=== PATIENT | male | born 1965 | race Caucasian/White ===

== ENCOUNTER 2016-12-07 07:15 | Day surgery (SDC) | payer OTHER, BC ==
[~2016-12-07 07:15] MED LIST: Lactated Ringers 1,000 ML IV SCH; Lidocaine 1%/Sod Bicarbonate in NS 8.4% 1 ML Syringe IV PRN; Lidocaine 1%/Sod Bicarbonate in NS 8.4% 1 ML Syringe PRN; Sodium Chloride 0.9% 10 ML Syringe FLUSH PRN
[2016-12-07] MEDS: Lactated Ringers 1,000 ML IV SCH ×2 (07:45→13:21)
[2016-12-07] MEDS ORDERED: fentaNYL 250 MCG/5 ML SDV ONE (07:46)
[2016-12-07] MEDS ORDERED: Midazolam 1 MG/ML 2 ML SDV ONE (07:46)
[2016-12-07] MEDS ORDERED: Propofol 200 MG/20 ML SDV ONE (07:46)
[2016-12-07] MEDS ORDERED: Lidocaine 1% 4 ML ONE (07:49)
[2016-12-07] MEDS ORDERED: Bupivacaine 0.5%/EPINEPHrine 1:200,000 50 ML MDV ONE (07:58)
[2016-12-07] MEDS ORDERED: Lidocaine 1% with EPINEPHrine 1:100,000 20 ML MDV ONE (07:58)
--- NOTE | 2016-12-07 08:02 | PCM.PREANE ---
Preanesthetic Assessment - Physical Assessment O2 Sat by Pulse Oximetry: 96 Respiratory Rate: 16 Vital Signs: Last Vital Signs Temp 37.2 C 12/07/16 07:25 Pulse 77 12/07/16 07:25 Resp 16 12/07/16 07:25 BP 120/72 12/07/16 07:25 Pulse Ox 96 12/07/16 07:25 Height: 1.85 m Weight: 113.398 kg - Allergies Allergies/Adverse Reactions: Allergies Allergy/AdvReac Type Severity Reaction Status Date / Time No Known Allergies Allergy Verified 12/06/16 14:10 PreAnesthesia Questionnaire - Past Health History Medical/Surgical History: Denies Medical/Surgical History Cardiovascular History: Reports: None Respiratory History: Reports: None Gastrointestinal History: Reports: None Genitourinary History: Reports: None ORE CHARGER History: Reports: None Neurological History: Reports: None Psychiatric History: Reports: None Endocrine/Metabolic History: Reports: None Hematologic History: Reports: None Immunologic History: Reports: None Oncologic (Cancer) History: Reports: None Dermatologic History: Reports: None - Past Surgical History Head Surgeries/Procedures: Reports: None HEENT Surgical History: Reports: Tonsillectomy Cardiovascular Surgical History: Reports: None Respiratory Surgical History: Reports: None GI Surgical History: Reports: None Female Surgical History: Reports: None Male Surgical History: Reports: None Neurological Surgical History: Reports: None Musculoskeletal Surgical History: Reports: ORIF Other Musculoskeletal Surgeries/Procedures:: L hand ORIF, ankle surgery x 3 Oncologic Surgical History: Reports: None Dermatological Surgical History: Reports: None - SUBSTANCE USE Smoking Status *Q: Current Every Day Smoker Tobacco Use Within Last Twelve Months: Cigarettes Days Per Week of Alcohol Use: 7 Number of Drinks Per Day: 3 Total Drinks Per Week: 21 Recreational Drug Use History: No - HOME MEDS Home Medications: Home Meds . [No Known Home Meds] 04/27/16 [History] - CURRENT (IN HOUSE) MEDS Current Meds: Current Medications Lactated Ringer's (Ringers, Lactated) 1,000 mls @ 125 mls/hr IV ASDIRECTED ABHI Stop: 12/07/16 23:00 Lidocaine/Sodium Bicarbonate (Buffered Lidocaine 1% In Ns 8.4%) 0.25 ml .XX ONETIME PRN PRN Reason: Prior to IV Start Stop: 12/07/16 18:00 Sodium Chloride (Saline Flush) 10 ml FLUSH ASDIRECTED PRN PRN Reason: Keep Vein Open Stop: 12/07/16 18:00 Discontinued Medications Fentanyl (Sublimaze) Confirm Administered Dose 250 mcg .ROUTE .STK-MED ONE Stop: 12/07/16 07:47 Lactated Ringer's (Ringers, Lactated) 1,000 mls @ 125 mls/hr IV ASDIRECTED ABHI Lidocaine HCl (Xylocaine-Mpf 1%) Confirm Administered Dose 4 mls @ as directed .ROUTE .STK-MED ONE Stop: 12/07/16 07:50 Lidocaine/Sodium Bicarbonate (Buffered Lidocaine 1% In Ns 8.4%) 0.25 ml IV ONETIME PRN PRN Reason: Prior to IV Start Midazolam HCl (Versed 1 Mg/Ml) Confirm Administered Dose 2 mg .ROUTE .STK-MED ONE Stop: 12/07/16 07:47 Propofol (Diprivan 20 Ml) Confirm Administered Dose 200 mg .ROUTE .STK-MED ONE Stop: 12/07/16 07:47 Sodium Chloride (Saline Flush) 10 ml FLUSH ASDIRECTED PRN PRN Reason: Keep Vein Open
[2016-12-07] MEDS ORDERED: fentaNYL 100 MCG/2 ML SDV IVPUSH PRN (08:10)
[2016-12-07] MEDS ORDERED: diphenhydrAMINE 50 MG/ML SDV IVPUSH PRN (08:10)
[2016-12-07] MEDS ORDERED: Ondansetron 4 MG/2 ML SDV IVPUSH PRN (08:10)
[2016-12-07] MEDS ORDERED: Meperidine PF 50 MG/ML Syringe IVPUSH PRN (08:10)
--- NOTE | 2016-12-07 08:19 | PCM.PREANE ---
Preanesthetic Assessment - Procedure Proposed Procedure: Open umbilical hernia repair with mesh - Anesthesia/Transfusion/Family Hx Anesthesia History: Prior Anesthesia Without Reaction Family History of Anesthesia Reaction: No Transfusion History: No Prior Transfusion(s) Intubation History: Unknown - Review of Systems General: No Symptoms Pulmonary: No Symptoms, Other (last cigarette 6 am. ) Cardiovascular: No Symptoms Gastrointestinal: No Symptoms Neurological: No Symptoms Other: Reports: None - Physical Assessment NPO Status Date: 12/06/16 NPO Status Time: 21:30 O2 Sat by Pulse Oximetry: 96 Respiratory Rate: 16 Vital Signs: Last Vital Signs Temp 37.2 C 12/07/16 07:25 Pulse 77 12/07/16 07:25 Resp 16 12/07/16 08:02 BP 120/72 12/07/16 07:25 Pulse Ox 96 12/07/16 08:02 Height: 1.85 m Weight: 113.398 kg ASA Class: 2 Airway Class: Mallampati = 1 Dentition: Reports: Normal Dentition Thyro-Mental Finger Breadths: 3 Mouth Opening Finger Breadths: 5 ROM/Head Extension: Full Lungs: Clear to Auscultation, Normal Respiratory Effort Cardiovascular: Regular Rate, Regular Rhythm - Allergies Allergies/Adverse Reactions: Allergies Allergy/AdvReac Type Severity Reaction Status Date / Time No Known Allergies Allergy Verified 12/06/16 14:10 - Blood Blood Available: No - Anesthesia Plan Pre-Op Medication Ordered: None - Acknowledgements Anesthesia Type Planned: General Anesthesia PreAnesthesia Questionnaire - Past Health History Medical/Surgical History: Denies Medical/Surgical History Cardiovascular History: Reports: None Respiratory History: Reports: None Gastrointestinal History: Reports: None Genitourinary History: Reports: None CLIENT ANALYST History: Reports: None Neurological History: Reports: None Psychiatric History: Reports: None Endocrine/Metabolic History: Reports: None Hematologic History: Reports: None Immunologic History: Reports: None Oncologic (Cancer) History: Reports: None Dermatologic History: Reports: None - Past Surgical History Head Surgeries/Procedures: Reports: None HEENT Surgical History: Reports: Tonsillectomy Cardiovascular Surgical History: Reports: None Respiratory Surgical History: Reports: None GI Surgical History: Reports: None Female Surgical History: Reports: None Male Surgical History: Reports: None Neurological Surgical History: Reports: None Musculoskeletal Surgical History: Reports: ORIF Other Musculoskeletal Surgeries/Procedures:: L hand ORIF, ankle surgery x 3 Oncologic Surgical History: Reports: None Dermatological Surgical History: Reports: None - SUBSTANCE USE Smoking Status *Q: Current Every Day Smoker Tobacco Use Within Last Twelve Months: Cigarettes Days Per Week of Alcohol Use: 7 Number of Drinks Per Day: 3 Total Drinks Per Week: 21 Recreational Drug Use History: No - HOME MEDS Home Medications: Home Meds . [No Known Home Meds] 04/27/16 [History] - CURRENT (IN HOUSE) MEDS Current Meds: Current Medications Diphenhydramine HCl (Benadryl) 25 mg IVPUSH Q6H PRN PRN Reason: pruritis Fentanyl (Sublimaze) 50 mcg IVPUSH Q5M PRN PRN Reason: Pain Hydromorphone HCl (Dilaudid) 0.5 mg IVPUSH Q15M PRN PRN Reason: severe pain Stop: 12/07/16 08:26 Lactated Ringer's (Ringers, Lactated) 1,000 mls @ 125 mls/hr IV ASDIRECTED ABHI Stop: 12/07/16 23:00 Last Admin: 12/07/16 07:45 Dose: 125 mls/hr Lidocaine/Sodium Bicarbonate (Buffered Lidocaine 1% In Ns 8.4%) 0.25 ml .XX ONETIME PRN PRN Reason: Prior to IV Start Stop: 12/07/16 18:00 Last Admin: 12/07/16 07:44 Dose: 0.25 ml Meperidine HCl (Demerol) 12.5 mg IVPUSH ONETIME PRN PRN Reason: shivering Stop: 12/08/16 08:11 Ondansetron HCl (Zofran) 4 mg IVPUSH ONETIME PRN PRN Reason: Nausea/Vomiting Sodium Chloride (Saline Flush) 10 ml FLUSH ASDIRECTED PRN PRN Reason: Keep Vein Open Stop: 12/07/16 18:00 Discontinued Medications Bupivacaine HCl/Epinephrine Bitart (Marcaine 0.5%/Epinephrine 1:200,000) Confirm Administered Dose 50 ml .ROUTE .STK-MED ONE Stop: 12/07/16 07:59 Fentanyl (Sublimaze) Confirm Administered Dose 250 mcg .ROUTE .STK-MED ONE Stop: 12/07/16 07:47 Lactated Ringer's (Ringers, Lactated) 1,000 mls @ 125 mls/hr IV ASDIRECTED ABHI Lidocaine HCl (Xylocaine-Mpf 1%) Confirm Administered Dose 4 mls @ as directed .ROUTE .STK-MED ONE Stop: 12/07/16 07:50 Lidocaine/Epinephrine (Xylocaine 1% With Epinephrine 1:100,000) Confirm Administered Dose 20 ml .ROUTE .STK-MED ONE Stop: 12/07/16 07:59 Lidocaine/Sodium Bicarbonate (Buffered Lidocaine 1% In Ns 8.4%) 0.25 ml IV ONETIME PRN PRN Reason: Prior to IV Start Midazolam HCl (Versed 1 Mg/Ml) Confirm Administered Dose 2 mg .ROUTE .STK-MED ONE Stop: 12/07/16 07:47 Propofol (Diprivan 20 Ml) Confirm Administered Dose 200 mg .ROUTE .STK-MED ONE Stop: 12/07/16 07:47 Sodium Chloride (Saline Flush) 10 ml FLUSH ASDIRECTED PRN PRN Reason: Keep Vein Open
[2016-12-07] MEDS ORDERED: Albuterol 6.7 GM Inhaler INH ONE ×2 (09:00)
[2016-12-07] MEDS ORDERED: ceFAZolin 1 GM Vial ONE (09:02)
[2016-12-07] MEDS ORDERED: HYDROmorphone 0.5 MG/0.5 ML Syringe IVPUSH PRN (09:15)
[2016-12-07] MEDS ORDERED: Ketorolac 30 MG/ML SDV ONE (09:25)
[2016-12-07] MEDS ORDERED: Dexamethasone 4 MG/ML SDV ONE (09:25)
[2016-12-07] MEDS ORDERED: Ondansetron 4 MG/2 ML SDV ONE (09:25)
--- NOTE | 2016-12-07 10:35 | PCM.POSTAN ---
POST ANESTHESIA ASSESSMENT - MENTAL STATUS Mental Status: Alert - VITAL SIGNS Pulse Rate: 84 SaO2: 96 Resp Rate: 10 Blood Pressure: 115/78 Temperature: 36.9 C - RESPIRATORY Respiratory Status: Respiratory Rate WNL, Airway Patent, O2 Saturation Stable - CARDIOVASCULAR CV Status: Pulse Rate WNL, Blood Pressure Stable - GASTROINTESTINAL GI Status: No Symptoms - PAIN Pain Score: 0 - POST OP HYDRATION Hydration Status: Adequate & Stable
--- NOTE | 2016-12-07 12:25 | PCM48HPAN ---
Post Anesthesia Note - EVALUATION WITHIN 48HRS OF ANESTHETIC Vital Signs in Normal Range: Yes Patient Participated in Evaluation: Yes Respiratory Function Stable: Yes Airway Patent: Yes Cardiovascular Function Stable: Yes Hydration Status Stable: Yes Pain Control Satisfactory: Yes Nausea and Vomiting Control Satisfactory: Yes Mental Status Recovered: Yes
[2016-12-07 13:18] VITALS: BP 117/75
--- NOTE | 2016-12-10 08:00 | PCM.OPNOTE ---
- General Post-Op/Procedure Note Date of Surgery/Procedure: 12/07/16 Operative Procedure(s): 1. open left inguinal hernia repair with plug and mesh. 2. excision of cord lipoma Findings: 1. large indirect hernia with a smaller associated direct inguinal hernia 2. Large cord lipoma Pre Op Diagnosis: symptomatic left inguinal hernia Post-Op Diagnosis: 1. Pantaloon hernia. 2. Cord lipoma Anesthesia Technique: General LMA, Local Primary Surgeon: Figueroa Molina Pathology: none EBL in mLs: 3 Complications: None Condition: Good Free Text/Narrative:: After adequate LMA general anesthesia was obtained the patient's left groin was prepped then draped sterilely for the procedure. After local analgesia was given an incision was made with a 15 blade over the left inguinal canal through the skin. This incision was deepened sharply through Camper's and Yaneth's fascia to the external oblique fascia. The external oblique was opened in the direction of its fibers exposing the ilioinguinal nerve which was retracted in a cephalad direction. The spermatic cord was mobilized at the pubic tubercle and controlled with a Sells drain. There was a small direct inguinal hernia seen. I opened the cremasteric fibers at the level of the deep ring and exposed an indirect hernia sac. There was a rather large cord lipoma lateral to the cord. I the indirect sac from the spermatic cord structures. I opened the sac and reduced its contents. I used a 2-0 silk pursestring suture to ligate the base of the sac and then I excised the redundant sac. I clamped the base of a cord lipoma and amputated it. A 3-0 Vicryl suture was used to ligate the base. During the procedure I nicked the vas deferens. It wasn't a complete transection and I used a 5-0 Vicryl to close this chris. I opened the floor of the inguinal canal. I placed the plug in the floor and secured it to the shelving edge of inguinal ligament and the conjoined tendon with 2-0 Ethibond. The mesh was then placed in the floor of the canal and secured in position with a running 2-0 Prolene suture connecting the mesh to the shelving edge of the inguinal ligament and the fascia of the internal oblique. A keyhole was used for cord egress as the mesh was taken lateral to the deep ring. The field was irrigated out with saline. The cord structures were placed back into the canal. I closed the cremaster with 3 interrupted 3-0 Vicryl sutures. The external oblique fascia was closed over the cord with a running 3-0 Vicryl suture. Yaneth 's was closed with interrupted 3-0 Vicryl sutures. The skin was closed with 4-0 subcuticular Vicryl suture. Steri-Strips and gauze were used for the dressing.
== END 2016-12-07 13:15 | disposition home or self-care (01) ==
LOC: JD.SDS 07:15
PROVIDERS: ATTEND Surgery
PROC: 0YU60JZ Supplement Left Inguinal Region with Synthetic Substitute, Open Approach (ICD-10-PCS; principal; 2016-12-07)
DX: K40.90 Unilateral inguinal hernia, without obstruction or gangrene, not specified as recurrent (principal); D17.6 Benign lipomatous neoplasm of spermatic cord; F17.210 Nicotine dependence, cigarettes, uncomplicated; Z90.89 Acquired absence of other organs; Z98.890 Other specified postprocedural states
CPT/HCPCS: 49505; 93005; A9270; C1781; J0690; J1100; J1885; J2250; J2405; J3010; J7120; 00830; J2704

== ENCOUNTER 2017-05-04 16:45 | Emergency (ER) | payer OTHER, BC ==
--- NOTE | 2017-05-04 17:03 | EDM.PDOC ---
ED HPI GENERAL MEDICAL PROBLEM - General Chief Complaint: Lower Extremity Injury/Pain Stated Complaint: INJURED AND NOW SWOLLEN R KNEE/THIGH Time Seen by Provider: 05/04/17 17:02 - History of Present Illness INITIAL COMMENTS - FREE TEXT/NARRATIVE: 52-year-old male presents emergency room with a right knee injury. The patient's case is complicated by a remote history of an ankle injury of the right that required several surgeries. The patient was walking across his back yard last night and got his foot caught in a hole the patient tried to correct this as to not put a strain on his ankle. And he landed on hard ground with his kneecap. Since then the patient has had pain and some swelling around his patella. No other associated injuries with this fall Right Leg Pain Score (Numeric/FACES): 1 - Related Data Allergies Allergy/AdvReac Type Severity Reaction Status Date / Time No Known Allergies Allergy Verified 12/06/16 14:10 Home Meds: Home Meds Naproxen [Naprosyn] 500 mg PO Q12HR #20 tablet 05/04/17 [Rx] Past Medical History - Past Health History Medical/Surgical History: Denies Medical/Surgical History Cardiovascular History: Reports: None Respiratory History: Reports: None Gastrointestinal History: Reports: None Genitourinary History: Reports: None SURGEON ASSISTANT History: Reports: None Neurological History: Reports: None Psychiatric History: Reports: None Endocrine/Metabolic History: Reports: None Hematologic History: Reports: None Immunologic History: Reports: None Oncologic (Cancer) History: Reports: None Dermatologic History: Reports: None - Past Surgical History Head Surgeries/Procedures: Reports: None HEENT Surgical History: Reports: Tonsillectomy Cardiovascular Surgical History: Reports: None Respiratory Surgical History: Reports: None GI Surgical History: Reports: None Female Surgical History: Reports: None Male Surgical History: Reports: None Neurological Surgical History: Reports: None Musculoskeletal Surgical History: Reports: ORIF Other Musculoskeletal Surgeries/Procedures:: L hand ORIF, ankle surgery x 3 Oncologic Surgical History: Reports: None Dermatological Surgical History: Reports: None Social & Family History - Tobacco Use Smoking Status *Q: Current Every Day Smoker Years of Tobacco use: 30 Packs/Tins Daily: 0.5 - Caffeine Use Caffeine Use: Reports: None - Alcohol Use Days Per Week of Alcohol Use: 7 Number of Drinks Per Day: 3 Total Drinks Per Week: 21 - Recreational Drug Use Recreational Drug Use: No - Living Situation & Occupation Living situation: Reports: , Alone Occupation: Employed Review of Systems - Review of Systems Review Of Systems: See Below Constitutional: Reports: No Symptoms Respiratory: Reports: No Symptoms Cardiovascular: Reports: No Symptoms GI/Abdominal: Reports: No Symptoms ED EXAM, GENERAL - Physical Exam Exam: See Below Exam Limited By: No Limitations General Appearance: Alert, No Apparent Distress Respiratory/Chest: No Respiratory Distress, Lungs Clear, Normal Breath Sounds Cardiovascular: Regular Rate, Rhythm, No Edema, Systolic Murmur (The patient has a very soft murmur 1/6 heard in the left lower sternal margin. He does not recall ever having a history of murmur in the past.), Other Extremities: Other (Examination of the right knee show some swelling around the patella and proximal to the patella no significant discomfort in his quadriceps muscle he has some mild discomfort in the iliotibial band no pain over the greater trochanter. Meniscal testing shows intact MCL and LCL and a little bit of laxity with the ACL but this is nontender. Meniscal testing is for the most part normal however the patient will not fully relax.) Course - Vital Signs Last Recorded V/S: Last Vital Signs Temp 37.2 C 05/04/17 17:02 Pulse 83 05/04/17 17:02 Resp 18 05/04/17 17:02 BP 152/85 H 05/04/17 17:02 Pulse Ox 97 05/04/17 17:02 - Orders/Labs/Meds Orders: Active Orders 24 hr Category Date Time Status Knee 3V Rt [CR] Stat Exams 05/04/17 17:18 Taken - Re-Assessments/Exams Free Text/Narrative Re-Assessment/Exam: 05/04/17 19:05 X-ray examination of the right knee shows it healed fracture of the proximal fibula. Closer attention paid to the knee shows no acute fracture dislocation he has some soft tissue swelling. Close examination of his lower extremity is otherwise unremarkable he has no signs of meniscal entrapment ACL MCL and anterior cruciate ligaments appear to be fairly well intact there is a little bit of laxity but nothing acute nothing makes his pain worse examination of his lower leg shows no redness or swelling or warmth he has a little bit of edema here this is chronic and unchanged for him he has no significant calf discomfort the upper leg palpates normal except for the swelling around the patella. The patient did have a murmur heard on exam this is very subtle and soft we instructed the patient on the importance of follow-up for this when he establishes with his regular physician Departure - Departure Time of Disposition: 19:08 Disposition: Home, Self-Care 01 Clinical Impression: Prepatellar bursitis of right knee - Discharge Information Prescriptions: Naproxen [Naprosyn] 500 mg PO Q12HR #20 tablet Instructions: Prepatellar Bursitis With Rehab-SportsMed Referrals: PCP,None [Primary Care Provider] - Forms: ED Department Discharge Additional Instructions: Return to the emergency room with any questions problems worsening symptoms. You have been started on Naprosyn take one twice daily with meals. He may use Aleve 1 or 2 twice daily after running out of the Naprosyn. Follow-up in the Hospital clinic this next week for recheck. [phone] - My Orders Last 24 Hours: My Active Orders 05/04/17 17:18 Knee 3V Rt [CR] Stat - Assessment/Plan Last 24 Hours: My Active Orders 05/04/17 17:18 Knee 3V Rt [CR] Stat
[2017-05-04 17:07] VITALS: BP 152/85
--- NOTE | 2017-05-05 09:06 | CR ---
Right knee: AP, lateral and sunrise patellar views of the right knee were obtained. Comparison: No previous study. Old healed fracture is identified within the proximal fibular diaphysis. Small bone island is noted within the medial proximal tibia. Medial and lateral joint spaces are preserved. No joint effusion is seen. Patellofemoral joint appears within normal limits. Impression: 1. Old healed proximal fibular shaft fracture. 2. Nothing acute is seen on right knee exam. Diagnostic code #2
== END 2017-05-04 19:25 | disposition home or self-care (01) ==
LOC: JD.ED 16:45
DX: M70.41 Prepatellar bursitis, right knee (principal); F17.210 Nicotine dependence, cigarettes, uncomplicated; Z98.890 Other specified postprocedural states; W01.0XXA Fall on same level from slipping, tripping and stumbling without subsequent striking against object, initial encounter; Y93.89 Activity, other specified; Y99.0 Civilian activity done for income or pay
CPT/HCPCS: 73562-26-RT; 73562-RT; 99283